=== PATIENT | male | born 1930 | race Two or more races ===

== ENCOUNTER 2016-07-03 16:57 | Inpatient (IN) | payer OTHER ==
[~2016-07-03] VITALS: Ht 165.1 cm; Wt 54.5 kg
[2016-07-03 18:25] LABS: EOSINOPHIL (%) 0.2 % (0-5); HEMATOCRIT 27.5 % (38.0-50.0); IMMATURE GRANULOCYTE (%) 0.4 % (0.0-0.7); INSTRUMENT ABS NEUTROPHIL CT 3.6 K/uL; LYMPHOCYTE COUNT 0.9 K/uL (1.0-2.8); MCH 33.6 PG (29.0-34.0); MCHC 35.6 G/DL (30.0-36.0); MCV 94.2 FL (86-99); MEAN PLAT.VOLUME 9.1 uM^3 (9.0-12.4); MONOCYTE (%) 6.8 % (3-12); MONOCYTE COUNT 0.3 K/uL (0-0.8); NEUTROPHIL (%) 74.2 % (45-76); NEUTROPHIL COUNT 3.6 K/uL (1.8-6.4); PLATELET COUNT 158 K/uL (156-360); RBC DIS.WIDTH-CV 11.5 % (11.8-14.6); RBC DIS.WIDTH-SD 39.3 % (39-53); RED BLOOD COUNT 2.92 M/uL (4.00-5.50); WHITE BLOOD COUNT 4.8 K/uL (4.1-10.2)
[2016-07-03 18:34] LABS: CHLORIDE 89 mEq/L (99-109); POTASSIUM 3.5 mEq/L (3.7-5.4); SODIUM 124 mEq/L (136-147)
[2016-07-03 18:36] LABS: GLUCOSE 119 mg/dL (70-99)
[2016-07-03 18:37] LABS: ANION GAP 10 MEQ/L (2-14)
[2016-07-03 18:40] LABS: GFR ESTIMATE (CALCULATED) > 59 mL/min/
[2016-07-03 18:41] LABS: UREA NITROGEN (BUN) 16 mg/dL (9-23)
[2016-07-03 18:47] LABS: TROP-I INTERPRETATION NEGATIVE; TROPONIN-I 0.01 ng/mL (0.0-0.30)
[2016-07-03 19:18] LABS: ADD MIUA? YES; BILIRUBIN NEGATIVE; BLOOD SMALL; COLOR STRAW ((YELLOW)); GLUCOSE (STRIP) NEGATIVE; KETONES NEGATIVE; LEUKOCYTES NEGATIVE; NITRITE NEGATIVE; PROTEIN (STRIP) NEGATIVE; SPECIFIC GRAVITY 1.005 (1.000-1.030); UROBILINOGEN 0.2 MG/DL (0.2-1.0)
[2016-07-03 19:43] LABS: RED BLOOD CELLS 0-5 /HPF (0-5); WHITE BLOOD CELLS 0-5 /HPF (0-5)
[2016-07-03 19:44] LABS: AMORPHOUS PHOSPHATE CRYSTALS RARE; BACTERIA 1+ /HPF; CASTS PRESENT /LPF; CRYSTALS PRESENT; EPITHELIAL CELLS RARE /HPF; HYALINE CASTS RARE /LPF; MUCUS NONE SEEN /LPF; UCUL ADDED? NO
[2016-07-03] MEDS ORDERED: COMBIGAN O20 DROP/5 BOTH EYES (20:20)
[2016-07-03] MEDS ORDERED: LEVOTHYROXINE50 MCG PO (20:20)
[2016-07-03] MEDS ORDERED: LATANOPROST2.5 ML RIGHT EYE (20:20)
[2016-07-03] MEDS ORDERED: AMLODIPINE BESYL5 MG PO (20:20)
[2016-07-03] MEDS ORDERED: ONE-A-DAY ESSE1 EAC1 PO (20:21)
[2016-07-03] MEDS ORDERED: CALCIUM 500 MG1 EACH PO (20:21)
[2016-07-03] MEDS ORDERED: OMEGA 3-6-9 CO1 EACH PO (20:21)
[2016-07-03] MEDS ORDERED: ASCORBIC ACID500 M3 PO (20:21)
[2016-07-04 05:58] VITALS: BP 139/66
[2016-07-04 07:06] VITALS: BP 134/67
[2016-07-04 10:48] LABS: HEMATOCRIT 27.1 % (38.0-50.0); MCH 33.2 PG (29.0-34.0); MCHC 34.7 G/DL (30.0-36.0); MCV 95.8 FL (86-99); MEAN PLAT.VOLUME 9.1 uM^3 (9.0-12.4); PLATELET COUNT 145 K/uL (156-360); RBC DIS.WIDTH-CV 11.9 % (11.8-14.6); RBC DIS.WIDTH-SD 41.5 % (39-53); RED BLOOD COUNT 2.83 M/uL (4.00-5.50); WHITE BLOOD COUNT 4.2 K/uL (4.1-10.2)
[2016-07-04 10:55] VITALS: BP 109/56
[2016-07-04 11:33] LABS: ANION GAP 7 MEQ/L (2-14); CHLORIDE 92 MEQ/L (99-109); GFR ESTIMATE (CALCULATED) > 59 mL/min/; POTASSIUM 3.2 MEQ/L (3.7-5.4); SAMPLE HEMOLYSIS CHECK 0; SAMPLE ICTERIC CHECK 0; SAMPLE LIPEMIA CHECK 0; SODIUM 127 MEQ/L (136-147); UREA NITROGEN (BUN) 10 mg/dL (9-23)
[2016-07-04 11:39] LABS: GLUCOSE 86 mg/dL (70-99)
[2016-07-04 14:55] VITALS: BP 134/63
[2016-07-04 19:39] VITALS: BP 148/72
[2016-07-04 23:22] VITALS: BP 152/70
[2016-07-05 03:27] VITALS: BP 123/63
[2016-07-05 06:26] LABS: EOSINOPHIL (%) 0.2 % (0-5); HEMATOCRIT 26.2 % (38.0-50.0); IMMATURE GRANULOCYTE (%) 0.4 % (0.0-0.7); INSTRUMENT ABS NEUTROPHIL CT 3.6 K/uL; LYMPHOCYTE COUNT 1.2 K/uL (1.0-2.8); MCH 32.8 PG (29.0-34.0); MCV 96.7 FL (86-99); MEAN PLAT.VOLUME 9.6 uM^3 (9.0-12.4); MONOCYTE (%) 9.7 % (3-12); MONOCYTE COUNT 0.5 K/uL (0-0.8); NEUTROPHIL (%) 66.4 % (45-76); NEUTROPHIL COUNT 3.6 K/uL (1.8-6.4); PLATELET COUNT 144 K/uL (156-360); RBC DIS.WIDTH-CV 11.9 % (11.8-14.6); RED BLOOD COUNT 2.71 M/uL (4.00-5.50); WHITE BLOOD COUNT 5.4 K/uL (4.1-10.2)
[2016-07-05 06:44] LABS: ANION GAP 4 MEQ/L (2-14); CHLORIDE 93 MEQ/L (99-109); GFR ESTIMATE (CALCULATED) > 59 mL/min/; GLUCOSE 89 mg/dL (70-99); POTASSIUM 3.5 MEQ/L (3.7-5.4); SAMPLE HEMOLYSIS CHECK 0; SAMPLE ICTERIC CHECK 0; SAMPLE LIPEMIA CHECK 0; SODIUM 126 MEQ/L (136-147); UREA NITROGEN (BUN) 8 mg/dL (9-23)
[2016-07-05 07:53] VITALS: BP 121/59
[2016-07-05 11:52] VITALS: BP 134/67; BP 140/66
[2016-07-05] MEDS ORDERED: TAMSULOSIN HCL0.4 MG PO (15:30)
[2016-07-05 19:54] VITALS: BP 143/66
[2016-07-05 23:51] VITALS: BP 126/62
[2016-07-06 03:48] VITALS: BP 140/62
[2016-07-06 06:39] LABS: HEMATOCRIT 27.1 % (38.0-50.0); MCH 33.3 PG (29.0-34.0); MCHC 34.7 G/DL (30.0-36.0); MCV 96.1 FL (86-99); PLATELET COUNT 123 K/uL (156-360); RBC DIS.WIDTH-CV 11.9 % (11.8-14.6); RED BLOOD COUNT 2.82 M/uL (4.00-5.50); WHITE BLOOD COUNT 5.2 K/uL (4.1-10.2)
[2016-07-06 07:15] LABS: ANION GAP 8 MEQ/L (2-14); CHLORIDE 94 MEQ/L (99-109); GFR ESTIMATE (CALCULATED) > 59 mL/min/; GLUCOSE 86 mg/dL (70-99); POTASSIUM 3.6 MEQ/L (3.7-5.4); SAMPLE HEMOLYSIS CHECK 0; SAMPLE ICTERIC CHECK 0; SAMPLE LIPEMIA CHECK 0; SODIUM 129 MEQ/L (136-147); UREA NITROGEN (BUN) 8 mg/dL (9-23)
[2016-07-06 08:09] VITALS: BP 137/66
[2016-07-06 11:27] VITALS: BP 132/59
[2016-07-06 15:17] VITALS: BP 156/70
[2016-07-06 20:00] VITALS: BP 141/84
[2016-07-06 23:35] VITALS: BP 92/50
[2016-07-07 03:47] VITALS: BP 102/59
[2016-07-07 06:07] LABS: EOSINOPHIL (%) 1.7 % (0-5); EOSINOPHIL COUNT 0.1 K/uL (0-0.3); HEMATOCRIT 26.4 % (38.0-50.0); IMMATURE GRANULOCYTE (%) 0.6 % (0.0-0.7); INSTRUMENT ABS NEUTROPHIL CT 2.9 K/uL; LYMPHOCYTE COUNT 1.1 K/uL (1.0-2.8); MCH 32.6 PG (29.0-34.0); MCHC 33.7 G/DL (30.0-36.0); MCV 96.7 FL (86-99); MEAN PLAT.VOLUME 10.1 uM^3 (9.0-12.4); MONOCYTE (%) 11.9 % (3-12); MONOCYTE COUNT 0.6 K/uL (0-0.8); NEUTROPHIL (%) 61.6 % (45-76); NEUTROPHIL COUNT 2.9 K/uL (1.8-6.4); PLATELET COUNT 114 K/uL (156-360); RBC DIS.WIDTH-CV 11.9 % (11.8-14.6); RBC DIS.WIDTH-SD 41.7 % (39-53); RED BLOOD COUNT 2.73 M/uL (4.00-5.50); WHITE BLOOD COUNT 4.8 K/uL (4.1-10.2)
[2016-07-07 06:29] LABS: ANION GAP 6 MEQ/L (2-14); CHLORIDE 88 MEQ/L (99-109); GFR ESTIMATE (CALCULATED) > 59 mL/min/; GLUCOSE 80 mg/dL (70-99); MAGNESIUM 1.5 mg/dl (1.3-2.7); POTASSIUM 4.1 MEQ/L (3.7-5.4); SAMPLE HEMOLYSIS CHECK 0; SAMPLE ICTERIC CHECK 0; SAMPLE LIPEMIA CHECK 0; SODIUM 125 MEQ/L (136-147); UREA NITROGEN (BUN) 16 mg/dL (9-23); URIC ACID 2.5 mg/dL (3.1-9.2)
[2016-07-07 07:35] VITALS: BP 104/53
[2016-07-07 10:43] LABS: HPCA INDEX 0.11
[2016-07-07 12:03] VITALS: BP 120/56
[2016-07-07 16:00] VITALS: BP 146/70
[2016-07-07 19:51] VITALS: BP 121/78
[2016-07-07 23:29] VITALS: BP 140/79
[2016-07-08 04:30] VITALS: BP 135/61
[2016-07-08 06:29] LABS: EOSINOPHIL (%) 1.6 % (0-5); EOSINOPHIL COUNT 0.1 K/uL (0-0.3); HEMATOCRIT 26.6 % (38.0-50.0); IMMATURE GRANULOCYTE (%) 0.7 % (0.0-0.7); INSTRUMENT ABS NEUTROPHIL CT 2.6 K/uL; LYMPHOCYTE COUNT 1.2 K/uL (1.0-2.8); MCH 33.5 PG (29.0-34.0); MCHC 34.6 G/DL (30.0-36.0); MCV 96.7 FL (86-99); MEAN PLAT.VOLUME 10.1 uM^3 (9.0-12.4); MONOCYTE (%) 11.1 % (3-12); MONOCYTE COUNT 0.5 K/uL (0-0.8); NEUTROPHIL (%) 58.9 % (45-76); NEUTROPHIL COUNT 2.6 K/uL (1.8-6.4); PLATELET COUNT 88 K/uL (156-360); RBC DIS.WIDTH-CV 11.9 % (11.8-14.6); RBC DIS.WIDTH-SD 41.7 % (39-53); RED BLOOD COUNT 2.75 M/uL (4.00-5.50); WHITE BLOOD COUNT 4.4 K/uL (4.1-10.2)
[2016-07-08 06:54] LABS: ANION GAP 6 MEQ/L (2-14); CHLORIDE 90 MEQ/L (99-109); GFR ESTIMATE (CALCULATED) > 59 mL/min/; GLUCOSE 91 mg/dL (70-99); POTASSIUM 3.7 MEQ/L (3.7-5.4); SAMPLE HEMOLYSIS CHECK 0; SAMPLE ICTERIC CHECK 0; SAMPLE LIPEMIA CHECK 0; SODIUM 126 MEQ/L (136-147); UREA NITROGEN (BUN) 18 mg/dL (9-23)
[2016-07-08 07:49] VITALS: BP 171/84
[2016-07-08 12:11] VITALS: BP 140/80
[2016-07-08] MEDS ORDERED: SODIUM CHLORIDE1 G1 PO (13:31)
[2016-07-08] MEDS ORDERED: TAMSULOSIN HCL0.4 MG PO (13:31)
== END 2016-07-08 16:07 | DRG 690 ==
LOC: EME 16:57 → 4SOUTH 07-04 00:05 → EDOF 07-04 00:05 → 4SOUTH 07-04 05:37
PROVIDERS: Emergency Medicine; Hospitalist; Internal Medicine Nephrology
DX: N39.0 Urinary tract infection, site not specified (principal); E22.2 Syndrome of inappropriate secretion of antidiuretic hormone; F05 Delirium due to known physiological condition; Z68.1 Body mass index [BMI] 19.9 or less, adult; N40.1 Benign prostatic hyperplasia with lower urinary tract symptoms; I10 Essential (primary) hypertension; R32 Unspecified urinary incontinence; E03.9 Hypothyroidism, unspecified; E87.6 Hypokalemia; I36.1 Nonrheumatic tricuspid (valve) insufficiency; I27.2 Other secondary pulmonary hypertension; I95.9 Hypotension, unspecified; I34.0 Nonrheumatic mitral (valve) insufficiency; I35.1 Nonrheumatic aortic (valve) insufficiency; R29.6 Repeated falls; R33.9 Retention of urine, unspecified; R68.0 Hypothermia, not associated with low environmental temperature; R63.6 Underweight; H91.93 Unspecified hearing loss, bilateral; Z88.0 Allergy status to penicillin; Z91.013 Allergy to seafood; Z91.012 Allergy to eggs
CPT/HCPCS: 70450; 71010; 76770; 80048; 81003; 82533 91; 82570; 83605; 83735; 83880; 83935; 84156; 84300; 84439; 84443; 84484; 84550; 85025; 85027; 86803; 87040; 87086; 93005; 93306; 93880; 97530 GO; 99281; 99285; J0696; J1644; J1956; J2310; J7030; J7050

== ENCOUNTER 2017-02-07 12:54 | Emergency (ER) | payer OTHER ==
[~2017-02-07] VITALS: Ht 165.1 cm; Wt 55.9 kg
[~2017-02-07 12:54] MED LIST: AMLODIPINE BESYL5 MG PO; ASCORBIC ACID500 M3 PO; CALCIUM 500 MG1 EACH PO; COMBIGAN O20 DROP/5 BOTH EYES; LATANOPROST2.5 ML RIGHT EYE; LEVOTHYROXINE50 MCG PO; OMEGA 3-6-9 CO1 EACH PO; ONE-A-DAY ESSE1 EAC1 PO; SODIUM CHLORIDE1 G1 PO; TAMSULOSIN HCL0.4 MG PO
[2017-02-07 14:12] LABS: MCH 33.8 PG (29.0-34.0); MCHC 35.5 G/DL (30.0-36.0); MCV 95.4 FL (86-99); MEAN PLAT.VOLUME 8.9 uM^3 (9.0-12.4); PLATELET COUNT 157 K/uL (156-360); RBC DIS.WIDTH-CV 11.5 % (11.8-14.6); RED BLOOD COUNT 3.46 M/uL (4.00-5.50); WHITE BLOOD COUNT 5.4 K/uL (4.1-10.2)
[2017-02-07 14:25] LABS: CHLORIDE 88 mEq/L (99-109); POTASSIUM 4.3 mEq/L (3.7-5.4); SODIUM 124 mEq/L (136-147)
[2017-02-07 14:27] LABS: GLUCOSE 108 mg/dL (70-99)
[2017-02-07 14:28] LABS: ANION GAP 8 MEQ/L (2-14)
[2017-02-07 14:30] LABS: GFR ESTIMATE (CALCULATED) > 59 mL/min/
[2017-02-07 14:31] LABS: UREA NITROGEN (BUN) 26 mg/dL (9-23)
[2017-02-07 14:33] LABS: TROP-I INTERPRETATION NEGATIVE; TROPONIN-I < 0.01 ng/mL (0.0-0.30)
[2017-02-07 16:05] VITALS: BP 132/35
== END 2017-02-07 16:16 | disposition left against medical advice (07) ==
LOC: EME 12:54
PROVIDERS: Emergency Medicine
DX: E87.1 Hypo-osmolality and hyponatremia (principal); R55 Syncope and collapse; I10 Essential (primary) hypertension; E05.90 Thyrotoxicosis, unspecified without thyrotoxic crisis or storm; Z88.0 Allergy status to penicillin
CPT/HCPCS: 71020; 80048; 84484; 85027; 93005; 99281; 99285; J7030

== ENCOUNTER 2017-06-03 14:01 | Inpatient (IN) | payer OTHER, MEDICARE ==
[~2017-06-03] VITALS: Ht 167.6 cm; Wt 67.0 kg
[~2017-06-03 14:01] MED LIST changes: +CALCIUM 500 +1 EACH PO; -CALCIUM 500 MG1 EACH PO
[2017-06-03 15:04] LABS: HEMATOCRIT 33.8 % (38.0-50.0); HEMOGLOBIN 12.1 G/DL (12.5-16.6); MCH 34.7 PG (29.0-34.0); MCHC 35.8 G/DL (30.0-36.0); MCV 96.8 FL (86-99); RBC DIS.WIDTH-SD 42.4 % (39-53); RED BLOOD COUNT 3.49 M/uL (4.00-5.50); WHITE BLOOD COUNT 6.8 K/uL (4.1-10.2)
[2017-06-03 15:17] LABS: CHLORIDE 91 mEq/L (99-109); POTASSIUM 4.5 mEq/L (3.7-5.4); SODIUM 131 mEq/L (136-147)
[2017-06-03 15:19] LABS: GLUCOSE 84 mg/dL (70-99)
[2017-06-03 15:23] LABS: CREATININE 0.7 mg/dL (0.6-1.3); GFR ESTIMATE (CALCULATED) > 59 mL/min/ (58.99-99999)
[2017-06-03 15:24] LABS: UREA NITROGEN (BUN) 21 mg/dL (9-23)
[2017-06-03 15:31] LABS: TROP-I INTERPRETATION NEGATIVE; TROPONIN-I 0.01 ng/mL (0.0-0.30)
[2017-06-03 15:46] LABS: THYROTROPIN (TSH) 6.5 MIU/L (0.4-5.5)
[2017-06-03 16:12] LABS: CREATINE KINASE 317 IU/L (1-294); TOTAL CK 317 IU/L (1-294)
[2017-06-03 16:14] LABS: CK-MB 23.1 ng/mL (0.0-4.9); CKMB RELATIVE INDEX 7.3 (0.0-3.9)
[2017-06-03 16:35] LABS: HEMATOLOGY COMMENT 1 SN; PLAT.SUFFICIENCY DECREASED; PLATELET COUNT 92 K/uL (156-360)
[2017-06-03] MEDS ORDERED: SODIUM CHLORIDE1 G1 PO (16:38)
[2017-06-03] MEDS ORDERED: [UNRECOGNIZED DRUG - OTHER] TP (16:39)
[2017-06-03] MEDS ORDERED: FLOMAX0.4 MG PO (16:39)
[2017-06-03] MEDS ORDERED: LEVOTHYROXINE75 MCG PO (16:39)
[2017-06-03] MEDS ORDERED: LOPROX 0.77% TP (16:39)
[2017-06-03] MEDS ORDERED: ADULT ASPIRIN R81 MG PO (16:40)
[2017-06-03] MEDS ORDERED: NORVASC2.5 MG PO (16:40)
[2017-06-03] MEDS ORDERED: IRON325 M1 PO (16:40)
[2017-06-03] MEDS ORDERED: MICRO-K10 ME2 PO (16:40)
[2017-06-03] MEDS ORDERED: LASIX20 MG PO (16:41)
[2017-06-03 18:38] LABS: APPEARANCE CLOUDY ((CLEAR)); BILIRUBIN NEGATIVE; BLOOD LARGE; COLOR YELLOW ((YELLOW)); GLUCOSE (STRIP) NEGATIVE; KETONES NEGATIVE; LEUKOCYTES NEGATIVE; NITRITE NEGATIVE; PROTEIN (STRIP) NEGATIVE; SPECIFIC GRAVITY 1.011 (1.000-1.030); UROBILINOGEN 0.2 MG/DL (0.2-1.0)
[2017-06-03 19:00] LABS: AMORPHOUS PHOSPHATE CRYSTALS 2+; BACTERIA NONE SEEN /HPF; EPITHELIAL CELLS RARE /HPF; MUCUS NONE SEEN /LPF; RED BLOOD CELLS TNTC /HPF (0-5); UCUL ADDED? YES
[2017-06-03 23:30] VITALS: BP 134/68
[2017-06-04 03:34] VITALS: BP 147/69
[2017-06-04 05:50] LABS: HEMOGLOBIN 11.5 G/DL (12.5-16.6); MCH 34.1 PG (29.0-34.0); MCHC 34.8 G/DL (30.0-36.0); MCV 97.9 FL (86-99); RBC DIS.WIDTH-CV 12.2 % (11.8-14.6); RBC DIS.WIDTH-SD 43.8 % (39-53); RED BLOOD COUNT 3.37 M/uL (4.00-5.50); WHITE BLOOD COUNT 7.6 K/uL (4.1-10.2)
[2017-06-04 06:09] LABS: CHLORIDE 94 MEQ/L (99-109); CREATININE 0.7 MG/DL (0.6-1.3); GFR ESTIMATE (CALCULATED) > 59 mL/min/ (58.99-99999); GLUCOSE 60 mg/dL (70-99); POTASSIUM 4.1 MEQ/L (3.7-5.4); SODIUM 129 MEQ/L (136-147); UREA NITROGEN (BUN) 17 mg/dL (9-23)
[2017-06-04 06:41] LABS: PLAT.SUFFICIENCY DECREASED
[2017-06-04 06:46] LABS: PLATELET COUNT 58 K/uL (156-360)
[2017-06-04 07:04] VITALS: BP 134/62
[2017-06-04 11:26] VITALS: BP 115/55
[2017-06-04 16:31] VITALS: BP 171/81
[2017-06-04 19:02] VITALS: BP 149/72
[2017-06-05] VITALS (8 sets, daily range): BP systolic 111–173; BP diastolic 57–96
[2017-06-05 10:38] LABS: HEMATOCRIT 33.3 % (38.0-50.0); HEMOGLOBIN 11.6 G/DL (12.5-16.6); MCH 33.4 PG (29.0-34.0); MCHC 34.8 G/DL (30.0-36.0); RBC DIS.WIDTH-CV 12.2 % (11.8-14.6); RBC DIS.WIDTH-SD 42.7 % (39-53); RED BLOOD COUNT 3.47 M/uL (4.00-5.50)
[2017-06-05 11:02] LABS: PLAT.SUFFICIENCY DECREASED
[2017-06-05 11:07] LABS: CHLORIDE 95 MEQ/L (99-109); CREATININE 0.8 MG/DL (0.6-1.3); GFR ESTIMATE (CALCULATED) > 59 mL/min/ (58.99-99999); POTASSIUM 3.8 MEQ/L (3.7-5.4); SODIUM 130 MEQ/L (136-147); UREA NITROGEN (BUN) 19 mg/dL (9-23)
[2017-06-05 11:09] LABS: GLUCOSE 94 mg/dL (70-99)
[2017-06-05 11:20] LABS: PLATELET COUNT 98 K/uL (156-360)
[2017-06-05 11:22] LABS: MAGNESIUM 1.7 mg/dL (1.3-2.7)
[2017-06-06] VITALS (7 sets, daily range): BP systolic 88–107; BP diastolic 44–56
[2017-06-06 05:38] LABS: HEMATOCRIT 28.5 % (38.0-50.0); HEMOGLOBIN 9.8 G/DL (12.5-16.6); MCH 33.2 PG (29.0-34.0); MCHC 34.4 G/DL (30.0-36.0); MCV 96.6 FL (86-99); NRBC (%) 0.1 /100 WBC (0-0); RBC DIS.WIDTH-CV 12.3 % (11.8-14.6); RBC DIS.WIDTH-SD 42.9 % (39-53); RED BLOOD COUNT 2.95 M/uL (4.00-5.50); WHITE BLOOD COUNT 16.5 K/uL (4.1-10.2)
[2017-06-06 05:51] LABS: CHLORIDE 98 MEQ/L (99-109); CREATININE 0.9 MG/DL (0.6-1.3); GFR ESTIMATE (CALCULATED) > 59 mL/min/ (58.99-99999); GLUCOSE 72 mg/dL (70-99); POTASSIUM 3.5 MEQ/L (3.7-5.4); SODIUM 133 MEQ/L (136-147); UREA NITROGEN (BUN) 23 mg/dL (9-23)
[2017-06-06 06:50] LABS: HEMATOCRIT 28.2 % (38.0-50.0); HEMOGLOBIN 9.9 G/DL (12.5-16.6); MCH 34.1 PG (29.0-34.0); MCHC 35.1 G/DL (30.0-36.0); MCV 97.2 FL (86-99); NRBC (%) 0.1 /100 WBC (0-0); RBC DIS.WIDTH-CV 12.2 % (11.8-14.6); RBC DIS.WIDTH-SD 43.4 % (39-53); WHITE BLOOD COUNT 15.8 K/uL (4.1-10.2)
[2017-06-06 06:55] LABS: PLAT.SUFFICIENCY DECREASED; PLATELET COUNT 103 K/uL (156-360)
[2017-06-06 07:01] LABS: PLATELET CLUMPS PRESENT - PLATELET COUNTS APPEARS DECREASED
[2017-06-06 07:19] LABS: ERTH.SED.RATE 59 MM/HR (0-20)
[2017-06-06 07:19] LABS: PLATELET COUNT UNABLE TO REPORT K/uL (156-360)
[2017-06-06 09:42] LABS: ERTH.SED.RATE 53 MM/HR (0-20)
[2017-06-06 12:26] LABS: APPEARANCE TURBID ((CLEAR)); BILIRUBIN SMALL; BLOOD LARGE; COLOR RED ((YELLOW)); GLUCOSE (STRIP) 100; KETONES TRACE; LEUKOCYTES SMALL; NITRITE NEGATIVE; PROTEIN (STRIP) 300; SPECIFIC GRAVITY 1.025 (1.000-1.030); UROBILINOGEN 0.2 MG/DL (0.2-1.0)
[2017-06-06 12:43] LABS: RED BLOOD CELLS TNTC /HPF (0-5)
[2017-06-07] VITALS (7 sets, daily range): BP systolic 111–168; BP diastolic 57–86
[2017-06-07 08:00] LABS: HEMATOCRIT 27.5 % (38.0-50.0); HEMOGLOBIN 9.6 G/DL (12.5-16.6); MCH 34.2 PG (29.0-34.0); MCHC 34.9 G/DL (30.0-36.0); MCV 97.9 FL (86-99); NRBC (%) 0.2 /100 WBC (0-0); PLATELET COUNT 89 K/uL (156-360); RBC DIS.WIDTH-CV 12.6 % (11.8-14.6); RBC DIS.WIDTH-SD 45.2 % (39-53); RED BLOOD COUNT 2.81 M/uL (4.00-5.50); WHITE BLOOD COUNT 8.3 K/uL (4.1-10.2)
[2017-06-07 08:19] LABS: CHLORIDE 99 MEQ/L (99-109); POTASSIUM 3.3 MEQ/L (3.7-5.4); SODIUM 133 MEQ/L (136-147)
[2017-06-07 08:26] LABS: CREATININE 0.7 MG/DL (0.6-1.3); GFR ESTIMATE (CALCULATED) > 59 mL/min/ (58.99-99999); UREA NITROGEN (BUN) 20 mg/dL (9-23)
[2017-06-07 08:28] LABS: GLUCOSE 93 mg/dL (70-99)
[2017-06-08 03:04] VITALS: BP 154/70
[2017-06-08 06:50] VITALS: BP 157/66
[2017-06-08 14:22] VITALS: BP 148/65
[2017-06-08 23:34] VITALS: BP 145/70
[2017-06-09 06:05] LABS: HEMOGLOBIN 9.4 G/DL (12.5-16.6); MCH 33.8 PG (29.0-34.0); MCHC 34.8 G/DL (30.0-36.0); MCV 97.1 FL (86-99); PLATELET COUNT 77 K/uL (156-360); RBC DIS.WIDTH-CV 12.2 % (11.8-14.6); RBC DIS.WIDTH-SD 43.8 % (39-53); RED BLOOD COUNT 2.78 M/uL (4.00-5.50)
[2017-06-09 06:24] LABS: CHLORIDE 98 MEQ/L (99-109); CREATININE 0.6 MG/DL (0.6-1.3); GFR ESTIMATE (CALCULATED) > 59 mL/min/ (58.99-99999); GLUCOSE 71 mg/dL (70-99); POTASSIUM 3.4 MEQ/L (3.7-5.4); SODIUM 135 MEQ/L (136-147); UREA NITROGEN (BUN) 13 mg/dL (9-23)
[2017-06-09 07:15] VITALS: BP 155/70
[2017-06-09 08:00] VITALS: BP 141/61
[2017-06-09 11:00] VITALS: BP 157/65
[2017-06-09 16:55] VITALS: BP 132/68
[2017-06-10] VITALS: BP 153/70
[2017-06-10 06:36] LABS: HEMATOCRIT 27.7 % (38.0-50.0); HEMOGLOBIN 9.4 G/DL (12.5-16.6); MCH 33.5 PG (29.0-34.0); MCHC 33.9 G/DL (30.0-36.0); MCV 98.6 FL (86-99); PLATELET COUNT 69 K/uL (156-360); RBC DIS.WIDTH-CV 12.1 % (11.8-14.6); RBC DIS.WIDTH-SD 43.4 % (39-53); RED BLOOD COUNT 2.81 M/uL (4.00-5.50); WHITE BLOOD COUNT 6.1 K/uL (4.1-10.2)
[2017-06-10 07:03] LABS: CHLORIDE 97 MEQ/L (99-109); CREATININE 0.7 MG/DL (0.6-1.3); GFR ESTIMATE (CALCULATED) > 59 mL/min/ (58.99-99999); GLUCOSE 67 mg/dL (70-99); POTASSIUM 3.9 MEQ/L (3.7-5.4); SODIUM 134 MEQ/L (136-147); UREA NITROGEN (BUN) 16 mg/dL (9-23)
[2017-06-10 07:20] VITALS: BP 140/71
[2017-06-10] MEDS ORDERED: TRAZODONE HCL50 MG PO (11:25)
[2017-06-10] MEDS ORDERED: CARBIDOPA/LEVO1 EACH PO (11:26)
[2017-06-10 11:28] VITALS: BP 124/65
[2017-06-10] MEDS ORDERED: LACTULOSE10 GM/151 PO (11:28)
== END 2017-06-10 16:15 | DRG 193 ==
LOC: EME 14:01 → 5EAST 19:52 → 4EAST 19:52 → EDOF 19:52 → ENRESERV 19:56 → 4EAST 23:25 → ENRESERV 06-07 16:12 → 5EAST 06-07 18:54
PROVIDERS: Emergency Medicine; Hospitalist; Internal Medicine
DX: J18.9 Pneumonia, unspecified organism (principal); G93.40 Encephalopathy, unspecified; R78.81 Bacteremia; B96.89 Other specified bacterial agents as the cause of diseases classified elsewhere; R68.0 Hypothermia, not associated with low environmental temperature; N41.0 Acute prostatitis; E87.1 Hypo-osmolality and hyponatremia; R62.7 Adult failure to thrive; R63.0 Anorexia; Z68.1 Body mass index [BMI] 19.9 or less, adult; E03.9 Hypothyroidism, unspecified; E87.6 Hypokalemia; R25.2 Cramp and spasm; R13.10 Dysphagia, unspecified; R47.1 Dysarthria and anarthria; D69.6 Thrombocytopenia, unspecified; K59.00 Constipation, unspecified; R29.6 Repeated falls; I95.1 Orthostatic hypotension; I10 Essential (primary) hypertension; N40.1 Benign prostatic hyperplasia with lower urinary tract symptoms; R31.9 Hematuria, unspecified; R33.8 Other retention of urine; Z91.81 History of falling; Z83.3 Family history of diabetes mellitus
CPT/HCPCS: 70450; 71045; 71250; 74176; 80048; 81003; 82140; 82533 91; 82550; 82550 91; 82553; 82948; 83605; 83735; 84153; 84439; 84443; 84484; 85027; 85651; 86140; 87040; 87086; 87801; 92610 GN; 93005; 95819; 97530 GO; 97530 GP; 99281; 99285; J0360; J0456; J0696; J1100; J7030